=== PATIENT | male | born 1955 | race Caucasian/White ===

== ENCOUNTER 2017-04-05 17:24 | Inpatient (IN) ==
[2017-04-05 18:16] LABS: Basophils # 0.1 10*3/uL (0.0-0.2); Eosinophils # 0.2 10*3/uL (0.0-0.87); Eosinophils % 2.6 % (0.00-10.9); Hematocrit 29.6 VOL% (42.0-52.0); Hemoglobin 9.5 GM/DL (14.0-18.0); Immature Granulocytes % 1.5 %; Immature Granulocytes Absolute 0.12 #; Lymphocytes # 1.1 10*3/uL (1.4-4.0); Lymphocytes % 13.9 % (21.2-54.2); Mean Corpuscular HGB Conc 32.1 GM/DL (32-36); Mean Corpuscular Hemoglobin 30 PG (27-34); Mean Corpuscular Volume 94.3 FL (87-102); Mean Platelet Volume 12.8 FL (9.6-12.0); Monocytes # 1.2 10*3/uL (0.11-0.8); Monocytes % 14.8 % (1.7-12.7); NRBC # 0.04 10*3/uL; Neutrophils # 5.4 10*3/uL (1.4-7.4); Neutrophils % 66.2 % (38.7-73.9); Platelet Count 121 T/CUMM (130-400); Red Blood Count 3.14 MC/CUMM (3.8-5.5); Red Cell Distribution Width 21.1 % (9.3-17.3); White Blood Count 8.2 T/CUMM (4-12)
[2017-04-05] MEDS ORDERED: SODIUM CHLORIDE 0.9% 2,000 ML IV STA (18:28)
[2017-04-05 18:31] LABS: Alanine Aminotransferase 24 U/L (16-61); Albumin 2.6 G/DL (3.4-5.0); Alkaline Phosphatase 121 U/L (45-117); Aspartate Amino Transferase 32 U/L (0-37); Blood Urea Nitrogen 8 MG/DL (7-18); Calcium 8.5 MG/DL (8.5-10.1); Glucose 115 MG/DL (74-106); Osmolality,Calculated 271.8 MOS/KG (273-304); Potassium 4.5 MMOL/L (3.5-5.1); Sodium 137 MMOL/L (136-145)
[2017-04-05 18:33] LABS: Troponin I Only 0.374 NG/ML (0.00-0.045)
[2017-04-05 18:39] LABS: Band Neutrophils 7 % (0-10); Eosinophils 2 % (0-10); Lymphocytes 8 % (20-55); Nucleated Red Blood Cells 1 (0-5); Platelet Estimate Adequate; Polychromasia Slight; Segmented Neutrophils 77 % (50-85); Total Cells Counted 100
[2017-04-05] MEDS ORDERED: CEFEPIME 2,000 MG in SODIUM CHLORIDE 0.9% 100 ML IV STA (20:25)
[2017-04-05] MEDS ORDERED: VANCOMYCIN INJ 1,000 MG in SODIUM CHLORIDE 0.9% 250 ML IV STA (20:26)
[2017-04-05] MEDS ORDERED: VANCOMYCIN 1,000 MG VIAL ONE (20:53)
[2017-04-05] MEDS ORDERED: DEXTROSE 50% 25 GM/50 ML VIAL IV PRN (22:12)
[2017-04-05] MEDS ORDERED: GLUCAGON 1 MG VIAL IM PRN (22:12)
[2017-04-05] MEDS: LEVOFLOXACIN INJ 750 MG in PREMIX 1 EACH IV SCH (23:56)
[2017-04-06] MEDS: metroNIDAZOLE INJ 500 MG in PREMIX 1 EACH IV SCH ×3 (01:46→17:28)
[2017-04-06] MEDS: SODIUM CHLORIDE 0.9% 1,000 ML IV SCH ×2 (06:33→23:16)
[2017-04-06] MEDS ORDERED: MAGNESIUM SULF RIDER 4 GM in PREMIX 1 EACH IV ONE (08:54)
[2017-04-06] MEDS: methylPREDNISolone SOD SUC 40 MG/1 ML VIAL IV SCH ×3 (11:18→23:18)
[2017-04-06] MEDS: VANCOMYCIN INJ 1,250 MG in SODIUM CHLORIDE 0.9% 250 ML IV SCH ×2 (11:22→23:16)
[2017-04-06] MEDS: ALBUTEROL/IPRATROPIUM 3 ML NEB RESP TX SCH ×2 (13:41→19:17)
[2017-04-07] MEDS: ALBUTEROL/IPRATROPIUM 3 ML NEB RESP TX SCH ×4 (00:35→19:26)
[2017-04-07] MEDS: LEVOFLOXACIN INJ 750 MG in PREMIX 1 EACH IV SCH (00:55)
[2017-04-07] MEDS: metroNIDAZOLE INJ 500 MG in PREMIX 1 EACH IV SCH ×3 (02:39→18:17)
[2017-04-07 04:33] LABS: Hematocrit 24.3 VOL% (42.0-52.0); Immature Granulocytes % 3.4 %; Immature Granulocytes Absolute 0.11 #; Lymphocytes # 0.2 10*3/uL (1.4-4.0); Mean Corpuscular HGB Conc 30.9 GM/DL (32-36); Mean Corpuscular Hemoglobin 29 PG (27-34); Mean Corpuscular Volume 95.3 FL (87-102); Mean Platelet Volume 13.1 FL (9.6-12.0); Monocytes # 0.1 10*3/uL (0.11-0.8); Monocytes % 3.8 % (1.7-12.7); NRBC # 0.02 10*3/uL; Neutrophils # 2.8 10*3/uL (1.4-7.4); Neutrophils % 87.8 % (38.7-73.9); Platelet Count 61 T/CUMM (130-400); Red Blood Count 2.55 MC/CUMM (3.8-5.5); White Blood Count 3.2 T/CUMM (4-12)
[2017-04-07 04:37] LABS: Hemoglobin 7.5 GM/DL (14.0-18.0)
[2017-04-07 05:14] LABS: Band Neutrophils 7 % (0-10); Lymphocytes 6 % (20-55); Metamyelocytes 3 %; Platelet Estimate Decreased; Segmented Neutrophils 81 % (50-85)
[2017-04-07 05:15] LABS: Anisocytosis 2+; Hypochromasia 1+; Macrocytosis 1+; Microcytosis 1+; Ovalocytes Few; Polychromasia Few
[2017-04-07 05:16] LABS: Total Cells Counted 100
[2017-04-07] MEDS: methylPREDNISolone SOD SUC 40 MG/1 ML VIAL IV SCH ×4 (05:24→22:59)
[2017-04-07 05:27] LABS: Albumin 2.3 G/DL (3.4-5.0); Bilirubin,Total 0.4 MG/DL (0.2-1.0); Calcium 7.9 MG/DL (8.5-10.1); Magnesium 1.6 MG/DL (1.8-2.4); Osmolality,Calculated 288.1 MOS/KG (273-304); Potassium 3.6 MMOL/L (3.5-5.1); Total Protein 4.7 G/DL (6.4-8.3)
[2017-04-07] MEDS ORDERED: SODIUM CHLORIDE 0.9% 250 ML IV PRN (07:51)
[2017-04-07] MEDS ORDERED: MAGNESIUM SULF RIDER 2 GM in PREMIX 1 EACH IV ONE (07:52)
[2017-04-07] MEDS ORDERED: ONDANSETRON 4 MG/2 ML VIAL IV PRN (09:26)
[2017-04-07] MEDS ORDERED: ACETAMINOPHEN 325 MG TABLET PO PRN (09:26)
[2017-04-07] MEDS ORDERED: chlorproMAZINE INJ 50 MG in SODIUM CHLORIDE 0.9% 100 ML IV PRN (09:26)
[2017-04-07] MEDS ORDERED: chlorproMAZINE INJ 25 MG in SODIUM CHLORIDE 0.9% 100 ML IV PRN (09:26)
[2017-04-07] MEDS ORDERED: traMADol 50 MG TABLET PO PRN (09:26)
[2017-04-07] MEDS ORDERED: diphenhydrAMINE CAP 25 MG CAPSULE PO PRN (09:26)
[2017-04-07] MEDS ORDERED: guaiFENesin 200 MG/10 ML UDCUP PO PRN (09:26)
[2017-04-07] MEDS ORDERED: LACTULOSE 20 GM/30 ML UDCUP PO PRN (09:26)
[2017-04-07] MEDS ORDERED: LOPERAMIDE 2 MG CAPSULE PO PRN ×2 (09:26)
[2017-04-07] MEDS ORDERED: BENZTROPINE 2 MG/2 ML AMP IV PRN (09:26)
[2017-04-07] MEDS ORDERED: TEMAZEPAM 7.5 MG CAPSULE PO PRN (09:26)
[2017-04-07] MEDS ORDERED: chlorproMAZINE 25 MG TABLET PO PRN (09:26)
[2017-04-07] MEDS ORDERED: ALUMINUM/MAGNES/SIMETH MAX STR 30 ML UDCUP PO PRN (09:26)
[2017-04-07] MEDS ORDERED: MAGNESIUM HYDROXIDE SUSP 30 ML UDCUP PO PRN (09:26)
[2017-04-07] MEDS ORDERED: MYLANTA/LIDO VISC 2:1 300 ML BOTTLE SWISH/SPIT PRN (09:26)
[2017-04-07] MEDS ORDERED: ALPRAZolam 0.25 MG TABLET PO PRN (09:26)
[2017-04-07] MEDS ORDERED: MYLANTA/LIDO VISC 2:1 300 ML BOTTLE SWISH/SWAL PRN (09:26)
[2017-04-07] MEDS ORDERED: PROMETHAZINE INJ 25 MG in SODIUM CHLORIDE 0.9% 50 ML IV PRN (09:26)
[2017-04-07] MEDS: SODIUM CHLORIDE 0.9% 1,000 ML IV SCH (12:43)
[2017-04-07] MEDS: VANCOMYCIN INJ 1,250 MG in SODIUM CHLORIDE 0.9% 250 ML IV SCH (13:13)
[2017-04-07] MEDS ORDERED: FUROSEMIDE 40 MG/4 ML VIAL IV ONE (22:53)
[2017-04-07 22:55] LABS: Basophils # 0.1 10*3/uL (0.0-0.2); Basophils % 0.4 % (0.0-0.8); Eosinophils % 0.1 % (0.00-10.9); Hematocrit 37.7 VOL% (42.0-52.0); Hemoglobin 12.1 GM/DL (14.0-18.0); Immature Granulocytes % 5.6 %; Lymphocytes # 0.3 10*3/uL (1.4-4.0); Mean Corpuscular HGB Conc 32.1 GM/DL (32-36); Mean Corpuscular Hemoglobin 30 PG (27-34); Mean Corpuscular Volume 93.5 FL (87-102); Mean Platelet Volume 11.8 FL (9.6-12.0); Monocytes # 0.8 10*3/uL (0.11-0.8); Monocytes % 5.5 % (1.7-12.7); NRBC # 0.03 10*3/uL; Neutrophils # 12.3 10*3/uL (1.4-7.4); Neutrophils % 86.4 % (38.7-73.9); Platelet Count 119 T/CUMM (130-400); Red Blood Count 4.03 MC/CUMM (3.8-5.5); Red Cell Distribution Width 20.6 % (9.3-17.3); White Blood Count 14.2 T/CUMM (4-12)
[2017-04-07 22:58] LABS: ABG Base Excess -5.8 MMOL/L (-2.5-2.5); ABG HCO3 23.3 MMOL/L (20-26); ABG Oxygen Saturation 81.4 % (95-100); ABG PCO2 62.9 MM HG (35-48); ABG PO2 53.2 MM HG (80-95); ABG TCO2 25.3 MMOL/L (23-27)
[2017-04-07 23:01] LABS: ABG PH 7.187 (7.35-7.45)
[2017-04-07 23:02] LABS: Potassium 3.8 MMOL/L (3.5-5.1)
[2017-04-07 23:21] LABS: Alanine Aminotransferase 24 U/L (16-61); Albumin 2.6 G/DL (3.4-5.0); Alkaline Phosphatase 164 U/L (45-117); Aspartate Amino Transferase 54 U/L (0-37); Blood Urea Nitrogen 13 MG/DL (7-18); Calcium 8.2 MG/DL (8.5-10.1); Glucose 288 MG/DL (74-106); Osmolality,Calculated 293.1 MOS/KG (273-304); Potassium 3.8 MMOL/L (3.5-5.1); Sodium 142 MMOL/L (136-145); Total Protein 5.5 G/DL (6.4-8.3)
[2017-04-07 23:24] LABS: Troponin I Only 0.104 NG/ML (0.00-0.045)
[2017-04-08] MEDS ORDERED: DILTIAZEM 100 MG VIAL.ADD IV ONE
[2017-04-08] MEDS ORDERED: SODIUM CHLORIDE 0.9% 100 ML IV ONE (00:02)
[2017-04-08] MEDS: LEVOFLOXACIN INJ 750 MG in PREMIX 1 EACH IV SCH (00:09)
[2017-04-08] MEDS: VANCOMYCIN INJ 1,250 MG in SODIUM CHLORIDE 0.9% 250 ML IV SCH ×2 (00:10→12:12)
[2017-04-08] MEDS: DILTIAZEM INJ 100 MG in SODIUM CHLORIDE 0.9% 100 ML IV SCH ×2 (00:11→21:00)
[2017-04-08] MEDS: SODIUM CHLORIDE 0.9% 1,000 ML IV SCH ×3 (00:22→21:45)
[2017-04-08 00:24] LABS: ABG Base Excess -4.8 MMOL/L (-2.5-2.5); ABG HCO3 24.1 MMOL/L (20-26); ABG PCO2 62.6 MM HG (35-48); ABG PO2 74.9 MM HG (80-95); ABG TCO2 26.1 MMOL/L (23-27)
[2017-04-08 00:25] LABS: ABG PH 7.204 (7.35-7.45)
[2017-04-08] MEDS ORDERED: SUCCINYLCHOLINE 200 MG/10 ML VIAL ONE (01:37)
[2017-04-08] MEDS ORDERED: ETOMIDATE 20 MG/10 ML VIAL IV ONE ×2 (01:37→02:05)
[2017-04-08] MEDS ORDERED: fentaNYL 100 MCG/2 ML VIAL IV ONE (01:40)
[2017-04-08] MEDS: PROPOFOL 1,000 MG/100 ML BOTTLE IV SCH (02:00)
[2017-04-08] MEDS ORDERED: SUCCINYLCHOLINE 200 MG/10 ML VIAL IV ONE (02:04)
[2017-04-08] MEDS: ALBUTEROL/IPRATROPIUM 3 ML NEB RESP TX SCH (02:27)
[2017-04-08] MEDS: fentaNYL INJ 1,250 MCG in SODIUM CHLORIDE 0.9% 225 ML IV SCH ×4 (02:29→11:12)
[2017-04-08] MEDS: metroNIDAZOLE INJ 500 MG in PREMIX 1 EACH IV SCH ×3 (02:38→18:49)
[2017-04-08 03:07] LABS: ABG HCO3 20.4 MMOL/L (20-26); ABG Oxygen Saturation 99.9 % (95-100); ABG PCO2 57.5 MM HG (35-48); ABG PH 7.221 (7.35-7.45); ABG TCO2 21.7 MMOL/L (23-27)
[2017-04-08 04:12] LABS: Basophils % 0.4 % (0.0-0.8); Eosinophils % 0.1 % (0.00-10.9); Hematocrit 34.3 VOL% (42.0-52.0); Hemoglobin 10.8 GM/DL (14.0-18.0); Immature Granulocytes % 3.6 %; Lymphocytes # 0.2 10*3/uL (1.4-4.0); Lymphocytes % 2.5 % (21.2-54.2); Mean Corpuscular HGB Conc 31.5 GM/DL (32-36); Mean Corpuscular Hemoglobin 30 PG (27-34); Mean Corpuscular Volume 94.8 FL (87-102); Mean Platelet Volume 12.9 FL (9.6-12.0); Monocytes # 0.5 10*3/uL (0.11-0.8); Monocytes % 6.3 % (1.7-12.7); NRBC # 0.05 10*3/uL; Neutrophils # 7.3 10*3/uL (1.4-7.4); Neutrophils % 87.1 % (38.7-73.9); Red Blood Count 3.62 MC/CUMM (3.8-5.5); Red Cell Distribution Width 20.5 % (9.3-17.3); White Blood Count 8.4 T/CUMM (4-12)
[2017-04-08 04:20] LABS: Platelet Count 90 T/CUMM (130-400)
[2017-04-08 04:22] LABS: Amorphous Crystals,Urine Occasional /HPF (Few); Apearance,Urine CLOUDY (Clear); Bacteria,Urine Occasional /HPF (Few); Bilirubin,Urine Negative (Negative); Blood, Urine Moderate mg/dL (Negative); Glucose,Urine (UA) 150 mg/dL (Negative); Hyaline Casts,Urine 2 /LPF (0-3); Ketones,Urine Negative (Negative); Mucus,Urine Occasional /LPF (Occasional); Nitrite,Urine Negative (Negative); Protein,Urine Negative; RBC,Urine 2 /HPF (0-4); Squamous Epithelial Cell,Urine Occasional /HPF (0-10); Urine Color Yellow (Yellow); Urine Specific Gravity 1.005 (1.001-1.035); Urine Urobilinogen < 2.0 EU/DL (0.2-1.0); WBC,Urine 5 /HPF (0-6)
[2017-04-08 04:27] LABS: Band Neutrophils 5 % (0-10); Lymphocytes 3 % (20-55); Metamyelocytes 2 %; Segmented Neutrophils 86 % (50-85)
[2017-04-08 04:28] LABS: Burr Cells 1+; Ovalocytes 2+; Platelet Estimate Adequate; Polychromasia 1+
[2017-04-08 04:29] LABS: Anisocytosis 2+; Macrocytosis 1+; Microcytosis 1+
[2017-04-08 04:30] LABS: Total Cells Counted 100
[2017-04-08] MEDS: methylPREDNISolone SOD SUC 40 MG/1 ML VIAL IV SCH ×3 (04:33→18:49)
[2017-04-08 04:48] LABS: Albumin 2.2 G/DL (3.4-5.0); Bilirubin,Total 0.4 MG/DL (0.2-1.0); Magnesium 1.6 MG/DL (1.8-2.4); Osmolality,Calculated 295.8 MOS/KG (273-304); Potassium 3.9 MMOL/L (3.5-5.1); Total Protein 4.9 G/DL (6.4-8.3)
[2017-04-08 06:11] LABS: Anisocytosis 1+; Band Neutrophils 3 % (0-10); Hypochromasia 1+; Lymphocytes 5 % (20-55); Microcytosis 1+; Ovalocytes Few; Platelet Estimate Decreased; Segmented Neutrophils 88 % (50-85); Tear Drop Cells Slight; Total Cells Counted 100
[2017-04-08 06:38] LABS: ABG Base Excess -4.1 MMOL/L (-2.5-2.5); ABG HCO3 20.9 MMOL/L (20-26); ABG Oxygen Saturation 94.4 % (95-100); ABG PCO2 54.4 MM HG (35-48); ABG PH 7.248 (7.35-7.45); ABG PO2 80.1 MM HG (80-95); ABG TCO2 21.9 MMOL/L (23-27)
[2017-04-08] MEDS ORDERED: SODIUM CHLORIDE 0.9% 250 ML IV ONE (06:44)
[2017-04-08] MEDS ORDERED: LEVALBUTEROL 0.63 MG/3 ML NEB RESP TX SCH (07:00)
[2017-04-08] MEDS: ALBUTEROL 1.25 MG/3 ML NEB RESP TX SCH ×2 (12:51→19:38)
[2017-04-08] MEDS ORDERED: ALBUTEROL 2.5 MG/3 ML NEB RESP TX SCH (13:00)
[2017-04-08] MEDS ORDERED: MAGNESIUM SULF RIDER 2 GM in PREMIX 1 EACH IV ONE (13:06)
[2017-04-08] MEDS: MIDAZOLAM 100 MG in SODIUM CHLORIDE 0.9% 80 ML IV SCH (15:05)
[2017-04-09] MEDS: ALBUTEROL 1.25 MG/3 ML NEB RESP TX SCH ×4 (00:12→20:16)
[2017-04-09] MEDS: LEVOFLOXACIN INJ 750 MG in PREMIX 1 EACH IV SCH (00:42)
[2017-04-09] MEDS: methylPREDNISolone SOD SUC 40 MG/1 ML VIAL IV SCH ×5 (00:42→23:16)
[2017-04-09] MEDS: VANCOMYCIN INJ 1,250 MG in SODIUM CHLORIDE 0.9% 250 ML IV SCH ×3 (00:43→23:10)
[2017-04-09] MEDS: DILTIAZEM INJ 100 MG in SODIUM CHLORIDE 0.9% 100 ML IV SCH ×2 (02:20→23:30)
[2017-04-09] MEDS: PROPOFOL 1,000 MG/100 ML BOTTLE IV SCH (02:20)
[2017-04-09] MEDS: fentaNYL INJ 1,250 MCG in SODIUM CHLORIDE 0.9% 225 ML IV SCH (02:29)
[2017-04-09 03:17] LABS: Allen Test Positive; Pt O2 Delivery Device Ventilator
[2017-04-09 03:18] LABS: ABG Base Excess -2.3 MMOL/L (-2.5-2.5); ABG HCO3 22.5 MMOL/L (20-26); ABG Oxygen Saturation 99.9 % (95-100); ABG PCO2 38.6 MM HG (35-48); ABG PH 7.375 (7.35-7.45)
[2017-04-09] MEDS: metroNIDAZOLE INJ 500 MG in PREMIX 1 EACH IV SCH ×3 (04:19→17:23)
[2017-04-09] MEDS: SODIUM CHLORIDE 0.9% 1,000 ML IV SCH ×4 (04:19→22:08)
[2017-04-09] MEDS: NOREPINEPHRINE 8 MG in SODIUM CHLORIDE 0.9% 242 ML IV SCH (05:46)
[2017-04-09 06:01] LABS: Hemoglobin 9.1 GM/DL (14.0-18.0); Immature Granulocytes % 1.1 %; Immature Granulocytes Absolute 0.05 #; Lymphocytes # 0.2 10*3/uL (1.4-4.0); Lymphocytes % 3.9 % (21.2-54.2); Mean Corpuscular HGB Conc 32.5 GM/DL (32-36); Mean Corpuscular Hemoglobin 30 PG (27-34); Mean Corpuscular Volume 93.3 FL (87-102); Mean Platelet Volume 12.8 FL (9.6-12.0); Monocytes # 0.2 10*3/uL (0.11-0.8); Monocytes % 5.2 % (1.7-12.7); Neutrophils # 4.2 10*3/uL (1.4-7.4); Neutrophils % 89.8 % (38.7-73.9); Red Cell Distribution Width 20.5 % (9.3-17.3); White Blood Count 4.6 T/CUMM (4-12)
[2017-04-09 06:04] LABS: Platelet Count 74 T/CUMM (130-400)
[2017-04-09 06:22] LABS: Band Neutrophils 2 % (0-10); Hypochromasia Slight; Lymphocytes 2 % (20-55); Microcytosis 1+; Ovalocytes Few; Segmented Neutrophils 95 % (50-85); Tear Drop Cells Slight; Total Cells Counted 100
[2017-04-09 06:23] LABS: Platelet Estimate Decreased; Polychromasia Slight
[2017-04-09 06:29] LABS: Calcium 7.8 MG/DL (8.5-10.1); Osmolality,Calculated 299.4 MOS/KG (273-304); Potassium 3.9 MMOL/L (3.5-5.1)
[2017-04-09 13:00] LABS: Mycoplasma pneumoniae Ab, IgG 0.53 index (<=0.90); Mycoplasma pneumoniae Ab, IgM 0.04 index (<=0.90)
[2017-04-09] MEDS: MIDAZOLAM 100 MG in SODIUM CHLORIDE 0.9% 80 ML IV SCH (15:14)
[2017-04-09] MEDS: ZINC OXIDE PASTE 113 GM TUBE TOP SCH (22:08)
[2017-04-10] MEDS: ALBUTEROL 1.25 MG/3 ML NEB RESP TX SCH ×4 (00:20→19:27)
[2017-04-10] MEDS ORDERED: VANCOMYCIN INJ 1,250 MG in SODIUM CHLORIDE 0.9% 250 ML IV SCH (01:00)
[2017-04-10] MEDS: PROPOFOL 1,000 MG/100 ML BOTTLE IV SCH (01:55)
[2017-04-10] MEDS: metroNIDAZOLE INJ 500 MG in PREMIX 1 EACH IV SCH ×3 (01:57→17:48)
[2017-04-10 03:08] LABS: ABG Base Excess -5.5 MMOL/L (-2.5-2.5); ABG HCO3 19.8 MMOL/L (20-26); ABG Oxygen Saturation 95.4 % (95-100); ABG PCO2 36.3 MM HG (35-48); ABG PH 7.342 (7.35-7.45); ABG PO2 80.5 MM HG (80-95); ABG TCO2 18.1 MMOL/L (23-27); Allen Test Positive; Pt O2 Delivery Device Ventilator
[2017-04-10 03:21] LABS: Hematocrit 29.2 VOL% (42.0-52.0); Hemoglobin 9.3 GM/DL (14.0-18.0); Immature Granulocytes % 2.3 %; Immature Granulocytes Absolute 0.11 #; Lymphocytes # 0.2 10*3/uL (1.4-4.0); Lymphocytes % 3.3 % (21.2-54.2); Mean Corpuscular HGB Conc 31.8 GM/DL (32-36); Mean Corpuscular Hemoglobin 30 PG (27-34); Mean Corpuscular Volume 93.9 FL (87-102); Mean Platelet Volume 11.8 FL (9.6-12.0); Monocytes # 0.2 10*3/uL (0.11-0.8); Monocytes % 4.2 % (1.7-12.7); Neutrophils # 4.3 10*3/uL (1.4-7.4); Neutrophils % 90.2 % (38.7-73.9); Red Blood Count 3.11 MC/CUMM (3.8-5.5); White Blood Count 4.8 T/CUMM (4-12)
[2017-04-10 03:23] LABS: Platelet Count 59 T/CUMM (130-400)
[2017-04-10 03:43] LABS: Calcium 8.1 MG/DL (8.5-10.1); Osmolality,Calculated 307.1 MOS/KG (273-304); Potassium 4.1 MMOL/L (3.5-5.1)
[2017-04-10] MEDS: SODIUM CHLORIDE 0.9% 1,000 ML IV SCH ×2 (05:00→05:01)
[2017-04-10] MEDS: MIDAZOLAM 100 MG in SODIUM CHLORIDE 0.9% 80 ML IV SCH ×2 (05:00→15:21)
[2017-04-10 05:01] LABS: Lymphocytes 3 % (20-55); Segmented Neutrophils 97 % (50-85); Total Cells Counted 100
[2017-04-10 05:02] LABS: Burr Cells Slight; Hypochromasia 1+; Microcytosis 1+; Ovalocytes Slight; Platelet Estimate Decreased
[2017-04-10] MEDS: methylPREDNISolone SOD SUC 40 MG/1 ML VIAL IV SCH ×4 (05:47→22:51)
[2017-04-10] MEDS: NOREPINEPHRINE 8 MG in SODIUM CHLORIDE 0.9% 242 ML IV SCH (06:00)
[2017-04-10] MEDS ORDERED: SODIUM CHLORIDE 0.45% 1,000 ML IV SCH (08:00)
[2017-04-10] MEDS: HYDROmorphone 2 MG/1 ML VIAL IV PRN ×3 (09:54→15:37)
[2017-04-10] MEDS: SODIUM CHLORIDE 0.45% 1,000 ML IV SCH ×2 (15:20→21:55)
[2017-04-10] MEDS: ZINC OXIDE PASTE 113 GM TUBE TOP SCH ×2 (15:23→21:55)
[2017-04-11] MEDS: HYDROmorphone 2 MG/1 ML VIAL IV PRN ×2 (00:16→15:24)
[2017-04-11] MEDS: DILTIAZEM INJ 100 MG in SODIUM CHLORIDE 0.9% 100 ML IV SCH (00:17)
[2017-04-11] MEDS: ALBUTEROL 1.25 MG/3 ML NEB RESP TX SCH ×4 (00:51→19:08)
[2017-04-11] MEDS: PROPOFOL 1,000 MG/100 ML BOTTLE IV SCH ×2 (01:46→17:16)
[2017-04-11] MEDS: metroNIDAZOLE INJ 500 MG in PREMIX 1 EACH IV SCH ×3 (01:53→17:21)
[2017-04-11 03:19] LABS: ABG Base Excess -9.1 MMOL/L (-2.5-2.5); ABG HCO3 17.1 MMOL/L (20-26); ABG Oxygen Saturation 95.6 % (95-100); ABG PCO2 52.7 MM HG (35-48); ABG TCO2 18.3 MMOL/L (23-27)
[2017-04-11 03:21] LABS: ABG PH 7.179 (7.35-7.45)
[2017-04-11] MEDS ORDERED: VECURONIUM 10 MG VIAL IV ONE (03:42)
[2017-04-11] MEDS ORDERED: SODIUM BICARBONATE 50 MEQ/50 ML VIAL IV ONE (03:43)
[2017-04-11] MEDS ORDERED: SODIUM BICARBONATE 50 MEQ/50 ML SYRINGE IV ONE (03:46)
[2017-04-11] MEDS ORDERED: LIDOCAINE 1% 20 ML VIAL MISC INJ ONE (04:33)
[2017-04-11] MEDS ORDERED: LIDOCAINE 2% 20 ML VIAL RESP TX ONE (04:33)
[2017-04-11 05:10] LABS: Basophils % 0.1 % (0.0-0.8); Hematocrit 33.1 VOL% (42.0-52.0); Hemoglobin 10.2 GM/DL (14.0-18.0); Immature Granulocytes % 5.7 %; Lymphocytes # 0.1 10*3/uL (1.4-4.0); Lymphocytes % 1.7 % (21.2-54.2); Mean Corpuscular HGB Conc 30.8 GM/DL (32-36); Mean Corpuscular Hemoglobin 30 PG (27-34); Mean Corpuscular Volume 97.1 FL (87-102); Mean Platelet Volume 13.8 FL (9.6-12.0); Monocytes # 0.3 10*3/uL (0.11-0.8); Monocytes % 3.7 % (1.7-12.7); Neutrophils # 6.2 10*3/uL (1.4-7.4); Neutrophils % 88.8 % (38.7-73.9); Red Blood Count 3.41 MC/CUMM (3.8-5.5); Red Cell Distribution Width 21.1 % (9.3-17.3)
[2017-04-11 05:15] LABS: Platelet Count 61 T/CUMM (130-400)
[2017-04-11 05:18] LABS: Calcium 8.2 MG/DL (8.5-10.1); Magnesium 1.7 MG/DL (1.8-2.4); Osmolality,Calculated 306.4 MOS/KG (273-304); Potassium 4.7 MMOL/L (3.5-5.1)
[2017-04-11] MEDS: SODIUM CHLORIDE 0.45% 1,000 ML IV SCH ×2 (05:54→08:47)
[2017-04-11 06:03] LABS: ABG Base Excess -6.6 MMOL/L (-2.5-2.5); ABG Oxygen Saturation 97.4 % (95-100); ABG PCO2 51.5 MM HG (35-48); ABG PH 7.224 (7.35-7.45); ABG TCO2 19.8 MMOL/L (23-27); Allen Test Positive; Pt O2 Delivery Device Ventilator
[2017-04-11] MEDS: methylPREDNISolone SOD SUC 40 MG/1 ML VIAL IV SCH ×4 (06:06→22:34)
[2017-04-11] MEDS: NOREPINEPHRINE 8 MG in SODIUM CHLORIDE 0.9% 242 ML IV SCH (06:07)
[2017-04-11 06:32] LABS: Anisocytosis 1+; Burr Cells Few; Tear Drop Cells Few
[2017-04-11 06:33] LABS: Platelet Estimate Decreased
[2017-04-11] MEDS ORDERED: MAGNESIUM SULF RIDER 4 GM in PREMIX 1 EACH IV PRN (07:53)
[2017-04-11] MEDS ORDERED: MAGNESIUM SULF RIDER 2 GM in PREMIX 1 EACH IV PRN (07:53)
[2017-04-11] MEDS ORDERED: VECURONIUM 10 MG VIAL IV PRN (08:00)
[2017-04-11] MEDS: FLUCONAZOLE INJ 200 MG in PREMIX 1 EACH IV SCH (09:31)
[2017-04-11] MEDS: ZINC OXIDE PASTE 113 GM TUBE TOP SCH ×2 (09:32→22:34)
[2017-04-11] MEDS ORDERED: VANCOMYCIN INJ 1,250 MG in SODIUM CHLORIDE 0.9% 250 ML IV PRN (09:38)
[2017-04-11] MEDS: PIPERACILLIN/TAZOBACTAM 3,375 MG in SODIUM CHLORIDE 0.9% 100 ML IV SCH ×2 (11:50→21:15)
[2017-04-11] MEDS ORDERED: PIPERACILLIN/TAZOBACTAM 3,375 MG in SODIUM CHLORIDE 0.9% 100 ML IV SCH (12:00)
[2017-04-11] MEDS ORDERED: VANCOMYCIN INJ 1,250 MG in SODIUM CHLORIDE 0.9% 250 ML IV ONE (14:00)
[2017-04-11] MEDS: MIDAZOLAM 100 MG in SODIUM CHLORIDE 0.9% 80 ML IV SCH (14:51)
[2017-04-11 18:26] LABS: ABG Base Excess -7.2 MMOL/L (-2.5-2.5); ABG HCO3 18.6 MMOL/L (20-26); ABG Oxygen Saturation 97.8 % (95-100); ABG PCO2 49.1 MM HG (35-48); ABG PH 7.228 (7.35-7.45); ABG TCO2 19.1 MMOL/L (23-27); Allen Test Positive; Pt O2 Delivery Device Ventilator
[2017-04-11] MEDS: INSULIN REGULAR 100 UNIT/ML SUBCUT SCH ×2 (18:32→23:42)
[2017-04-12] MEDS: ALBUTEROL 1.25 MG/3 ML NEB RESP TX SCH ×4 (00:16→19:18)
[2017-04-12] MEDS: metroNIDAZOLE INJ 500 MG in PREMIX 1 EACH IV SCH ×3 (01:23→17:10)
[2017-04-12 03:06] LABS: Hematocrit 31.6 VOL% (42.0-52.0); Immature Granulocytes % 4.7 %; Immature Granulocytes Absolute 0.26 #; Lymphocytes # 0.1 10*3/uL (1.4-4.0); Lymphocytes % 2.2 % (21.2-54.2); Mean Corpuscular HGB Conc 31.6 GM/DL (32-36); Mean Corpuscular Hemoglobin 30 PG (27-34); Monocytes # 0.2 10*3/uL (0.11-0.8); Monocytes % 2.7 % (1.7-12.7); NRBC # 0.02 10*3/uL; Neutrophils % 90.4 % (38.7-73.9); Platelet Count 45 T/CUMM (130-400); Red Blood Count 3.29 MC/CUMM (3.8-5.5); Red Cell Distribution Width 20.7 % (9.3-17.3); White Blood Count 5.5 T/CUMM (4-12)
[2017-04-12] MEDS: PROPOFOL 1,000 MG/100 ML BOTTLE IV SCH ×3 (03:11→23:35)
[2017-04-12 03:22] LABS: ABG Base Excess -5.6 MMOL/L (-2.5-2.5); ABG HCO3 20.6 MMOL/L (20-26); ABG Oxygen Saturation 92.9 % (95-100); ABG PCO2 43.3 MM HG (35-48); ABG PH 7.296 (7.35-7.45); ABG PO2 68.1 MM HG (80-95); Allen Test Positive; Pt O2 Delivery Device Ventilator
[2017-04-12 03:30] LABS: Calcium 8.2 MG/DL (8.5-10.1); Magnesium 1.7 MG/DL (1.8-2.4); Osmolality,Calculated 312.4 MOS/KG (273-304); Phosphorous 4.2 MG/DL (2.5-4.9); Potassium 4.7 MMOL/L (3.5-5.1); Prealbumin 6.7 MG/DL (20-40)
[2017-04-12] MEDS: PIPERACILLIN/TAZOBACTAM 3,375 MG in SODIUM CHLORIDE 0.9% 100 ML IV SCH ×3 (04:09→21:08)
[2017-04-12 05:06] LABS: Band Neutrophils 2 % (0-10); Lymphocytes 1 % (20-55); Myelocytes 2 %; Segmented Neutrophils 95 % (50-85); Total Cells Counted 100
[2017-04-12 05:07] LABS: Anisocytosis 1+
[2017-04-12 05:10] LABS: Schistocytes 1+
[2017-04-12 05:11] LABS: Ovalocytes 1+; Platelet Estimate Decreased
[2017-04-12] MEDS: methylPREDNISolone SOD SUC 40 MG/1 ML VIAL IV SCH ×4 (05:28→22:58)
[2017-04-12] MEDS: INSULIN REGULAR 100 UNIT/ML SUBCUT SCH ×4 (05:28→23:34)
[2017-04-12] MEDS: SODIUM CHLORIDE 0.45% 1,000 ML IV SCH ×3 (08:07→23:59)
[2017-04-12] MEDS: NOREPINEPHRINE 8 MG in SODIUM CHLORIDE 0.9% 242 ML IV SCH (08:08)
[2017-04-12] MEDS: FLUCONAZOLE INJ 200 MG in PREMIX 1 EACH IV SCH (08:50)
[2017-04-12] MEDS: ZINC OXIDE PASTE 113 GM TUBE TOP SCH ×2 (08:50→21:10)
[2017-04-13] MEDS: ALBUTEROL 1.25 MG/3 ML NEB RESP TX SCH ×4 (00:49→20:05)
[2017-04-13] MEDS: metroNIDAZOLE INJ 500 MG in PREMIX 1 EACH IV SCH ×3 (02:23→17:23)
[2017-04-13 03:37] LABS: ABG Base Excess -6.2 MMOL/L (-2.5-2.5); ABG HCO3 19.3 MMOL/L (20-26); ABG Oxygen Saturation 95.4 % (95-100); ABG PCO2 44.7 MM HG (35-48); ABG PH 7.272 (7.35-7.45); ABG PO2 86.1 MM HG (80-95); ABG TCO2 18.9 MMOL/L (23-27); Allen Test Positive; Pt O2 Delivery Device Ventilator
[2017-04-13] MEDS: HYDROmorphone 2 MG/1 ML VIAL IV PRN (04:16)
[2017-04-13] MEDS: PIPERACILLIN/TAZOBACTAM 3,375 MG in SODIUM CHLORIDE 0.9% 100 ML IV SCH ×3 (04:20→21:04)
[2017-04-13] MEDS: PROPOFOL 1,000 MG/100 ML BOTTLE IV SCH ×3 (04:24→22:33)
[2017-04-13 05:06] LABS: Basophils % 0.3 % (0.0-0.8); Hemoglobin 10.5 GM/DL (14.0-18.0); Immature Granulocytes % 6.7 %; Immature Granulocytes Absolute 0.49 #; Lymphocytes # 0.1 10*3/uL (1.4-4.0); Lymphocytes % 1.6 % (21.2-54.2); Mean Corpuscular HGB Conc 31.8 GM/DL (32-36); Mean Corpuscular Hemoglobin 30 PG (27-34); Mean Corpuscular Volume 94.6 FL (87-102); Monocytes # 0.2 10*3/uL (0.11-0.8); Monocytes % 3.1 % (1.7-12.7); NRBC # 0.02 10*3/uL; Neutrophils # 6.5 10*3/uL (1.4-7.4); Neutrophils % 88.3 % (38.7-73.9); Red Blood Count 3.49 MC/CUMM (3.8-5.5); Red Cell Distribution Width 20.6 % (9.3-17.3); White Blood Count 7.3 T/CUMM (4-12)
[2017-04-13 05:07] LABS: Platelet Count 49 T/CUMM (130-400)
[2017-04-13 05:31] LABS: Calcium 8.1 MG/DL (8.5-10.1); Magnesium 2.4 MG/DL (1.8-2.4); Osmolality,Calculated 311.7 MOS/KG (273-304); Potassium 4.4 MMOL/L (3.5-5.1)
[2017-04-13] MEDS: NOREPINEPHRINE 8 MG in SODIUM CHLORIDE 0.9% 242 ML IV SCH (05:36)
[2017-04-13] MEDS: methylPREDNISolone SOD SUC 40 MG/1 ML VIAL IV SCH ×4 (05:38→22:32)
[2017-04-13] MEDS: INSULIN REGULAR 100 UNIT/ML SUBCUT SCH ×3 (06:01→18:28)
[2017-04-13 06:24] LABS: Band Neutrophils 1 % (0-10); Hypochromasia Slight; Lymphocytes 2 % (20-55); Ovalocytes Slight; Platelet Estimate Decreased; Segmented Neutrophils 94 % (50-85); Total Cells Counted 100
[2017-04-13 06:25] LABS: Microcytosis Slight
[2017-04-13] MEDS: ZINC OXIDE PASTE 113 GM TUBE TOP SCH ×2 (08:49→21:04)
[2017-04-13] MEDS: FLUCONAZOLE INJ 200 MG in PREMIX 1 EACH IV SCH (09:30)
[2017-04-13] MEDS: SODIUM CHLORIDE 0.45% 1,000 ML IV SCH (13:01)
[2017-04-14] MEDS: INSULIN REGULAR 100 UNIT/ML SUBCUT SCH ×4 (00:05→17:52)
[2017-04-14] MEDS: SODIUM CHLORIDE 0.45% 1,000 ML IV SCH ×6 (00:07→22:54)
[2017-04-14] MEDS: ALBUTEROL 1.25 MG/3 ML NEB RESP TX SCH ×4 (01:07→19:19)
[2017-04-14] MEDS: metroNIDAZOLE INJ 500 MG in PREMIX 1 EACH IV SCH ×3 (02:36→18:25)
[2017-04-14 03:12] LABS: ABG Base Excess -4.4 MMOL/L (-2.5-2.5); ABG HCO3 20.8 MMOL/L (20-26); ABG Oxygen Saturation 98.5 % (95-100); ABG PCO2 44.2 MM HG (35-48); ABG PH 7.303 (7.35-7.45); ABG TCO2 19.9 MMOL/L (23-27); Allen Test Positive; Pt O2 Delivery Device Ventilator
[2017-04-14 03:17] LABS: Basophils % 0.1 % (0.0-0.8); Hematocrit 34.7 VOL% (42.0-52.0); Hemoglobin 11.1 GM/DL (14.0-18.0); Immature Granulocytes % 7.4 %; Immature Granulocytes Absolute 0.63 #; Lymphocytes # 0.1 10*3/uL (1.4-4.0); Lymphocytes % 1.5 % (21.2-54.2); Mean Corpuscular Hemoglobin 30 PG (27-34); Mean Corpuscular Volume 94.3 FL (87-102); Mean Platelet Volume 9.9 FL (9.6-12.0); Monocytes # 0.3 10*3/uL (0.11-0.8); NRBC # 0.02 10*3/uL; Neutrophils # 7.4 10*3/uL (1.4-7.4); Platelet Count 41 T/CUMM (130-400); Red Blood Count 3.68 MC/CUMM (3.8-5.5); White Blood Count 8.5 T/CUMM (4-12)
[2017-04-14 03:33] LABS: Calcium 8.5 MG/DL (8.5-10.1); Magnesium 2.3 MG/DL (1.8-2.4); Osmolality,Calculated 312.7 MOS/KG (273-304); Phosphorous 3.8 MG/DL (2.5-4.9); Potassium 4.5 MMOL/L (3.5-5.1)
[2017-04-14 04:05] LABS: Anisocytosis 1+; Band Neutrophils 4 % (0-10); Myelocytes 1 %; Segmented Neutrophils 95 % (50-85); Total Cells Counted 100
[2017-04-14 04:06] LABS: Ovalocytes 1+; Platelet Estimate Decreased; Tear Drop Cells 1+
[2017-04-14] MEDS: methylPREDNISolone SOD SUC 40 MG/1 ML VIAL IV SCH ×4 (04:27→22:52)
[2017-04-14] MEDS: PIPERACILLIN/TAZOBACTAM 3,375 MG in SODIUM CHLORIDE 0.9% 100 ML IV SCH ×3 (04:28→20:18)
[2017-04-14] MEDS: PROPOFOL 1,000 MG/100 ML BOTTLE IV SCH ×3 (04:29→12:35)
[2017-04-14] MEDS: HYDROmorphone 2 MG/1 ML VIAL IV PRN ×4 (06:18→18:00)
[2017-04-14] MEDS: FLUCONAZOLE INJ 200 MG in PREMIX 1 EACH IV SCH (08:51)
[2017-04-14] MEDS: ZINC OXIDE PASTE 113 GM TUBE TOP SCH ×2 (09:03→20:19)
[2017-04-14] MEDS ORDERED: ROCURONIUM 100 MG/10 ML VIAL IV ONE (13:51)
[2017-04-14] MEDS ORDERED: VANCOMYCIN INJ 1,250 MG in SODIUM CHLORIDE 0.9% 250 ML IV ONE (15:00)
[2017-04-15] MEDS: ALBUTEROL 1.25 MG/3 ML NEB RESP TX SCH ×4 (00:34→19:38)
[2017-04-15] MEDS: INSULIN REGULAR 100 UNIT/ML SUBCUT SCH ×5 (01:15→23:48)
[2017-04-15] MEDS: metroNIDAZOLE INJ 500 MG in PREMIX 1 EACH IV SCH ×3 (01:59→18:26)
[2017-04-15] MEDS: PROPOFOL 1,000 MG/100 ML BOTTLE IV SCH ×3 (03:07→19:30)
[2017-04-15 04:13] LABS: Basophils % 0.1 % (0.0-0.8); Hematocrit 35.8 VOL% (42.0-52.0); Hemoglobin 11.4 GM/DL (14.0-18.0); Immature Granulocytes % 6.5 %; Lymphocytes # 0.2 10*3/uL (1.4-4.0); Lymphocytes % 1.4 % (21.2-54.2); Mean Corpuscular HGB Conc 31.8 GM/DL (32-36); Mean Corpuscular Hemoglobin 30 PG (27-34); Mean Corpuscular Volume 94.7 FL (87-102); Monocytes # 0.5 10*3/uL (0.11-0.8); Monocytes % 3.4 % (1.7-12.7); NRBC # 0.03 10*3/uL; Neutrophils # 12.2 10*3/uL (1.4-7.4); Neutrophils % 88.6 % (38.7-73.9); Red Blood Count 3.78 MC/CUMM (3.8-5.5); Red Cell Distribution Width 21.2 % (9.3-17.3); White Blood Count 13.8 T/CUMM (4-12)
[2017-04-15 04:14] LABS: Platelet Count 46 T/CUMM (130-400)
[2017-04-15 04:32] LABS: ABG Base Excess -5.8 MMOL/L (-2.5-2.5); ABG HCO3 19.6 MMOL/L (20-26); ABG PCO2 41.7 MM HG (35-48); ABG PH 7.297 (7.35-7.45); ABG PO2 96.1 MM HG (80-95); ABG TCO2 18.5 MMOL/L (23-27)
[2017-04-15 04:36] LABS: Calcium 8.5 MG/DL (8.5-10.1); Osmolality,Calculated 314.8 MOS/KG (273-304); Potassium 4.9 MMOL/L (3.5-5.1)
[2017-04-15] MEDS: methylPREDNISolone SOD SUC 40 MG/1 ML VIAL IV SCH ×4 (04:40→22:50)
[2017-04-15] MEDS: PIPERACILLIN/TAZOBACTAM 3,375 MG in SODIUM CHLORIDE 0.9% 100 ML IV SCH ×3 (04:45→20:17)
[2017-04-15 04:50] LABS: Band Neutrophils 6 % (0-10); Lymphocytes 6 % (20-55); Metamyelocytes 3 %; Myelocytes 3 %; Platelet Estimate Decreased; Segmented Neutrophils 82 % (50-85); Total Cells Counted 100
[2017-04-15 04:51] LABS: Smudge Cells 1+
[2017-04-15] MEDS: SODIUM CHLORIDE 0.45% 1,000 ML IV SCH ×4 (06:31→23:15)
[2017-04-15] MEDS: HYDROmorphone 2 MG/1 ML VIAL IV PRN ×2 (07:34→22:34)
[2017-04-15] MEDS: FLUCONAZOLE INJ 200 MG in PREMIX 1 EACH IV SCH (07:42)
[2017-04-15] MEDS ORDERED: SUCCINYLCHOLINE 200 MG/10 ML VIAL ONE (11:40)
[2017-04-15] MEDS ORDERED: PROPOFOL 200 MG/20 ML VIAL IV ONE (11:40)
[2017-04-15 12:11] LABS: INR 1.5; PT Patient Result 15.2 SECS; Partial Thromboplastin Time 33.3 SECS (0-40); Partial Thromboplastin Time 33.6 SECS (0-40)
[2017-04-15] MEDS: ZINC OXIDE PASTE 113 GM TUBE TOP SCH ×2 (12:13→21:10)
[2017-04-15 17:39] LABS: ABG Base Excess -5.3 MMOL/L (-2.5-2.5); ABG HCO3 19.8 MMOL/L (20-26); ABG Oxygen Saturation 94.7 % (95-100); ABG PCO2 37.2 MM HG (35-48); ABG PH 7.344 (7.35-7.45); ABG PO2 75.3 MM HG (80-95); ABG TCO2 20.9 MMOL/L (23-27); Allen Test Positive; Pt O2 Delivery Device Ventilator
[2017-04-16] MEDS: ALBUTEROL 1.25 MG/3 ML NEB RESP TX SCH ×3 (00:04→12:42)
[2017-04-16] MEDS: PROPOFOL 1,000 MG/100 ML BOTTLE IV SCH ×2 (01:46→07:55)
[2017-04-16] MEDS: metroNIDAZOLE INJ 500 MG in PREMIX 1 EACH IV SCH ×2 (01:55→09:51)
[2017-04-16] MEDS: SODIUM CHLORIDE 0.45% 1,000 ML IV SCH ×2 (02:55→15:29)
[2017-04-16 03:28] LABS: ABG Base Excess -5.9 MMOL/L (-2.5-2.5); ABG HCO3 19.5 MMOL/L (20-26); ABG Oxygen Saturation 96.1 % (95-100); ABG PCO2 36.1 MM HG (35-48); ABG PH 7.336 (7.35-7.45); ABG PO2 84.8 MM HG (80-95); ABG TCO2 17.5 MMOL/L (23-27); Allen Test Positive; Pt O2 Delivery Device Ventilator
[2017-04-16] MEDS: PIPERACILLIN/TAZOBACTAM 3,375 MG in SODIUM CHLORIDE 0.9% 100 ML IV SCH ×2 (04:05→11:47)
[2017-04-16] MEDS: methylPREDNISolone SOD SUC 40 MG/1 ML VIAL IV SCH ×2 (04:40→10:54)
[2017-04-16 05:21] LABS: Basophils % 0.1 % (0.0-0.8); Hematocrit 34.9 VOL% (42.0-52.0); Hemoglobin 11.4 GM/DL (14.0-18.0); Immature Granulocytes % 2.6 %; Immature Granulocytes Absolute 0.42 #; Lymphocytes # 0.2 10*3/uL (1.4-4.0); Lymphocytes % 1.2 % (21.2-54.2); Mean Corpuscular HGB Conc 32.7 GM/DL (32-36); Mean Corpuscular Hemoglobin 31 PG (27-34); Mean Corpuscular Volume 93.6 FL (87-102); Monocytes # 0.7 10*3/uL (0.11-0.8); Monocytes % 4.3 % (1.7-12.7); NRBC # 0.03 10*3/uL; Neutrophils # 14.9 10*3/uL (1.4-7.4); Neutrophils % 91.8 % (38.7-73.9); Platelet Count 53 T/CUMM (130-400); Red Blood Count 3.73 MC/CUMM (3.8-5.5); Red Cell Distribution Width 21.8 % (9.3-17.3); White Blood Count 16.2 T/CUMM (4-12)
[2017-04-16] MEDS: INSULIN REGULAR 100 UNIT/ML SUBCUT SCH ×2 (05:33→12:10)
[2017-04-16 05:50] LABS: Calcium 8.8 MG/DL (8.5-10.1); Magnesium 2.1 MG/DL (1.8-2.4); Osmolality,Calculated 314.8 MOS/KG (273-304)
[2017-04-16 06:02] LABS: Band Neutrophils 2 % (0-10); Burr Cells Slight; Giant Platelets Few; Hypochromasia Slight; Lymphocytes 2 % (20-55); Ovalocytes Slight; Platelet Estimate Decreased; Segmented Neutrophils 92 % (50-85); Total Cells Counted 100
[2017-04-16] MEDS: FLUCONAZOLE INJ 200 MG in PREMIX 1 EACH IV SCH (08:34)
[2017-04-16] MEDS: ZINC OXIDE PASTE 113 GM TUBE TOP SCH (09:54)
[2017-04-16] MEDS ORDERED: INSULIN LISPRO 100 UNIT/ML SUBCUT ONE (12:32)
[2017-04-16] MEDS: HYDROmorphone 2 MG/1 ML VIAL IV PRN (12:37)
[2017-04-16] MEDS ORDERED: MORPHINE 2 MG/1 ML SYRINGE IV PRN (14:19)
[2017-04-16] MEDS: MORPHINE 2 MG/1 ML SYRINGE IV PRN ×3 (15:04→15:38)
[2017-04-16 17:34] VITALS: BP 87/61
== END 2017-04-16 15:51 | disposition expired | DRG 166 ==
LOC: N.ED 17:24 → N.EDINP 21:37 → SUATTDRO 21:37 → N.4E 23:12 → N.ICU 04-07 22:37
PROVIDERS: ADMIT Internal Medicine Infectious Disease; ATTEND Internal Medicine